=== PATIENT | female | born 1985 | race Hispanic/Latino ===

== ENCOUNTER 2017-10-14 07:07 | Day surgery (SDC) | payer MEDICAID ==
[~2017-10-14] VITALS: Ht 160 cm; Wt 80.6 kg
[~2017-10-14 07:07] MED LIST: ALPR1TAB7 PO; METH54TA PO; OMEP40CA37 PO; SODIUM CHLORIDE 0.9% 1000ML 1,000 ML IV ONE
[2017-10-14 07:37] VITALS: BP 118/70
[2017-10-14] MEDS ORDERED: PROPOFOL 10 MG/ML 20ML VIAL IV ONE ×2 (08:53→09:17)
[2017-10-14] MEDS ORDERED: LIDOCAINE HCL 2% 20ML ONE (08:53)
[2017-10-14 09:30] VITALS: BP 79/35
== END 2017-10-14 10:15 | disposition home or self-care (01) ==
LOC: ENDO 07:07 → DAH 07:07 → ENDO 10:15
PROVIDERS: ATTEND Internal Medicine Gastroenterology
DX: K62.5 Hemorrhage of anus and rectum (principal); K29.50 Unspecified chronic gastritis without bleeding; F41.9 Anxiety disorder, unspecified; F32.9 Major depressive disorder, single episode, unspecified; D64.9 Anemia, unspecified; F90.9 Attention-deficit hyperactivity disorder, unspecified type; Z90.49 Acquired absence of other specified parts of digestive tract; Z98.890 Other specified postprocedural states; Z98.51 Tubal ligation status; Z68.33 Body mass index [BMI] 33.0-33.9, adult; Z79.899 Other long term (current) drug therapy; Z87.891 Personal history of nicotine dependence
CPT/HCPCS: 36415; 43239; 45380; 84703; 88305; 88312; 88313; A4606; J2704 ×2; J3490; J7030

== ENCOUNTER 2018-05-05 13:11 | Emergency (ER) | payer MEDICAID ==
[~2018-05-05 13:11] MED LIST changes: -SODIUM CHLORIDE 0.9% 1000ML 1,000 ML IV ONE
[2018-05-05 13:38] LABS: APPEARANCE,URINE Clear (CLEAR); BILIRUBIN,URINE Negative (NEGATIVE); COLOR,URINE Yellow (YELLOW); GLUCOSE, URINE (UA) Negative (NEGATIVE); KETONES,URINE Negative (NEGATIVE); LEUKOCYTE ESTERASE ,URINE Small (NEGATIVE); NITRATE,URINE Negative (NEGATIVE); OCCULT BLOOD,URINE Negative (NEGATIVE); PH,URINE 6.5 (5.0-8.0); PROTEIN,URINE Negative (NEGATIVE)
[2018-05-05 13:43] LABS: HCG,QUAL RESULT NEGATIVE (NEGATIVE)
[2018-05-05 13:48] LABS: BACTERIA,URINE Rare /HPF (None Seen); RBC,URINE 0-1 /HPF (0-1); SQUAMOUS EPITHELIAL CELL,UR Few /HPF (0-2); WBC,URINE 0-1 /HPF (0-1)
[2018-05-05] MEDS ORDERED: LIDOCAINE HCL 2% VISCOUS 15 ML UDCUP ONE (14:32)
[2018-05-05] MEDS ORDERED: MAG HYDROX/AL HYDROX/SIMETH ES 30 ML SUSP UDCUP ONE (14:32)
[2018-05-05] MEDS ORDERED: KETOROLAC TROMETHAMINE 30MG/ML ONE (15:42)
== END 2018-05-05 16:45 | disposition home or self-care (01) ==
LOC: EDH 13:11
DX: N30.00 Acute cystitis without hematuria (principal); F98.8 Other specified behavioral and emotional disorders with onset usually occurring in childhood and adolescence; F41.9 Anxiety disorder, unspecified
CPT/HCPCS: 74176; 76856; 81001; 81025; 96372; 99284; J1885

== ENCOUNTER 2018-05-11 21:20 | Observation (INO) | payer MEDICAID ==
[~2018-05-11] VITALS: Ht 157.5 cm; Wt 84.8 kg
[2018-05-11 21:57] LABS: APPEARANCE,URINE Clear (CLEAR); BILIRUBIN,URINE Negative (NEGATIVE); COLOR,URINE Dark Yellow (YELLOW); GLUCOSE, URINE (UA) Negative (NEGATIVE); KETONES,URINE 15 mg/dL (NEGATIVE); LEUKOCYTE ESTERASE ,URINE Negative (NEGATIVE); NITRATE,URINE Negative (NEGATIVE); OCCULT BLOOD,URINE Nonhemolyzed Trace (NEGATIVE); PROTEIN,URINE Negative (NEGATIVE)
[2018-05-11 22:00] LABS: HCG,QUAL RESULT NEGATIVE (NEGATIVE)
[2018-05-11 22:04] LABS: BASOPHILS % (AUTO) 0.2 % (0.0-5.0); EOSINOPHILS % (AUTO) 1.1 % (0.0-8.0); HEMATOCRIT 39.4 % (36-48); LYMPHOCYTES % (AUTO) 12.3 % (21.0-51.0); MEAN CORPUSCULAR HGB CONC 31.7 g/dL (32.0-36.0); MEAN CORPUSCULAR VOLUME 75.7 fL (79-99); MONOCYTES % (AUTO) 4.2 % (3.0-13.0); NEUTROPHILS % (AUTO) 82.2 % (40.0-77.0); NUCLEATED RED BLOOD CELLS 0.1 % (0.0-0.19); PLATELET COUNT (AUTO) 204 K/uL (130-400); RED CELL DISTRIBUTION WIDTH 16.6 % (11.0-15.5)
[2018-05-11 22:07] LABS: BACTERIA,URINE Rare /HPF (None Seen); MUCUS,URINE Rare LPF (None Seen); SQUAMOUS EPITHELIAL CELL,UR Few /HPF (0-2); WBC,URINE 0-1 /HPF (0-1)
[2018-05-11 22:16] LABS: CREATININE 0.7 mg/dL (0.5-1.5); POTASSIUM 3.6 mmol/L (3.5-5.1)
[2018-05-11 22:20] LABS: BILIRUBIN,TOTAL 0.7 mg/dL (0.2-1.0); TOTAL PROTEIN, SERUM 7.8 g/dL (6.0-8.3)
[2018-05-11] MEDS ORDERED: PROMETHAZINE HCL 25 MG/ML 1ML AMPULE IM ONE (22:23)
[2018-05-11] MEDS ORDERED: MORPHINE SULFATE 2 MG/ML 1ML SYG ONE (22:24)
[2018-05-11] MEDS ORDERED: FAMOTIDINE/PF 20 MG/2 ML VIAL IV ONE (22:24)
[2018-05-11] MEDS ORDERED: SODIUM CHLORIDE 0.9% 50 ML IV ONE (22:25)
[2018-05-11] MEDS ORDERED: SODIUM CHLORIDE 0.9% 1000ML 1,000 ML IV ONE (22:29)
[2018-05-11] MEDS ORDERED: LIDOCAINE HCL 2% VISCOUS 15 ML UDCUP ONE ×2 (23:34→23:41)
[2018-05-11] MEDS ORDERED: MAGNESIUM HYDROXIDE 30 ML/UDCUP ONE ×2 (23:34→23:42)
[2018-05-12] MEDS ORDERED: MORPHINE SULFATE 2 MG/ML 1ML SYG ONE (00:32)
[2018-05-12 02:49] VITALS: BP 118/61
[2018-05-12] MEDS ORDERED: ONDANSETRON HCL 4 MG/2 ML VIAL IVP PRN (03:00)
[2018-05-12] MEDS ORDERED: MORPHINE SULFATE 5 MG/ML VIAL IVP PRN (03:00)
[2018-05-12] MEDS: SODIUM CHLORIDE 0.9% 1000ML 1,000 ML IV SCH ×2 (03:03→16:32)
[2018-05-12 04:27] LABS: MEAN CORPUSCULAR HEMOGLOBIN 24.9 pg (27.0-33.0); MEAN CORPUSCULAR HGB CONC 32.6 g/dL (32.0-36.0); MEAN CORPUSCULAR VOLUME 76.1 fL (79-99); PLATELET COUNT (AUTO) 206 K/uL (130-400); RED BLOOD CELL COUNT(AUTO) 4.59 MIL/uL (4.00-5.50); RED CELL DISTRIBUTION WIDTH 16.8 % (11.0-15.5); WHITE BLOOD COUNT (AUTO) 6.7 K/uL (4.8-10.8)
[2018-05-12 04:40] LABS: CREATININE 0.7 mg/dL (0.5-1.5); POTASSIUM 3.6 mmol/L (3.5-5.1)
[2018-05-12 05:07] LABS: BAND NEUTROPHILS % (MANUAL) 3 % (0-2); BASOPHILS % (MANUAL) 1 % (0-2); EOSINOPHILS % (MANUAL) 2 % (1-6); LYMPHOCYTES % (MANUAL) 6 % (22-44); MONOCYTES % (MANUAL) 4 % (2-9); SEGMENTED NEUTROPHILS % 84 % (40-70)
[2018-05-12 05:08] LABS: MAN.DIFF COMMENT-IMPRESSION MANUAL DIFFERENTIAL; PLATELET MORPHOLOGY COMMENT ADEQUATE
[2018-05-12 08:00] VITALS: BP 113/59
[2018-05-12] MEDS ORDERED: PANTOPRAZOLE 40 MG/VIAL IVP SCH (09:00)
[2018-05-12] MEDS: CEFTRIAXONE SODIUM 1 GM IVP SCH (10:21)
[2018-05-12 11:00] VITALS: BP 108/56
[2018-05-12 16:00] VITALS: BP 113/63
[2018-05-12 20:02] VITALS: BP 109/58
[2018-05-12 23:47] VITALS: BP 101/55
[2018-05-13] MEDS: SODIUM CHLORIDE 0.9% 1000ML 1,000 ML IV SCH (04:41)
[2018-05-13 04:54] VITALS: BP 106/67
[2018-05-13 08:00] VITALS: BP 123/83
[2018-05-13] MEDS ORDERED: PANTOPRAZOLE SODIUM 40 MG TABLET.DR PO SCH (08:37)
[2018-05-13] MEDS: CEFTRIAXONE SODIUM 1 GM IVP SCH (08:55)
== END 2018-05-13 11:51 | disposition home or self-care (01) ==
LOC: EDH 21:20 → EDHIP 21:21 → 4BH 05-12 02:18
PROVIDERS: ADMIT Internal Medicine; ATTEND Internal Medicine
DX: K52.9 Noninfective gastroenteritis and colitis, unspecified (principal); E86.0 Dehydration; F41.9 Anxiety disorder, unspecified; Z98.51 Tubal ligation status; Z90.49 Acquired absence of other specified parts of digestive tract
CPT/HCPCS: 36415 ×2; 80048; 80053; 81001; 81025; 82150 ×2; 82270; 83630; 83690 ×2; 85025 ×2; 87046; 87324; 87804 ×2; 96361 ×2; 96374; 96376; 99284; A4218 ×2; C9113; G0378 ×38; J0696 ×2; J2550; J3490; J7030 ×2

== ENCOUNTER → 2018-06-09 | Outpatient (CLI) | payer MEDICAID | END | disposition home or self-care (01) | LOC: RAH 10:22 | PROVIDERS: ATTEND Internal Medicine Gastroenterology | DX: R10.13 Epigastric pain (principal); R11.2 Nausea with vomiting, unspecified | CPT/HCPCS: 78264; A9541 ==

== ENCOUNTER 2019-06-01 06:17 | Day surgery (SDC) | payer MEDICAID ==
[2019-05-28 16:05] LABS: BASOPHILS % (AUTO) 0.5 % (0.0-5.0); MEAN CORPUSCULAR HEMOGLOBIN 24.2 pg (27.0-33.0); MEAN CORPUSCULAR HGB CONC 30.6 g/dL (32.0-36.0); MEAN CORPUSCULAR VOLUME 79.3 fL (79-99); MONOCYTES % (AUTO) 5.9 % (3.0-13.0); NEUTROPHILS % (AUTO) 64.5 % (40.0-77.0); PLATELET COUNT (AUTO) 268 K/uL (130-400); RED BLOOD CELL COUNT(AUTO) 4.54 MIL/uL (4.00-5.50); RED CELL DISTRIBUTION WIDTH 15.4 % (11.0-15.5); WHITE BLOOD COUNT (AUTO) 7.6 K/uL (4.8-10.8)
[2019-05-28 16:11] VITALS: BP 112/65
[2019-05-31] MEDS: CALDOLOR 800MG+NS 250ML 250 ML IV SCH (09:30)
[2019-05-31] MEDS: CEFAZOLIN SODIUM 1 GM VIAL IVP SCH (09:30)
[2019-06-01] VITALS (17 sets, daily range): BP systolic 104–137; BP diastolic 49–81
[~2019-06-01] VITALS: Ht 158.8 cm; Wt 80.8 kg
[2019-06-01] MEDS ORDERED: LACTATED RINGERS 1000ML 1,000 ML IV ONE (06:26)
[2019-06-01] MEDS ORDERED: LIDOCAINE PF 2% 5ML ABBOJECT ONE (07:42)
[2019-06-01] MEDS ORDERED: MIDAZOLAM HCL 1 MG/ML 2ML VIAL ONE (07:43)
[2019-06-01] MEDS ORDERED: PROPOFOL 10 MG/ML 20ML VIAL IV ONE (07:43)
[2019-06-01] MEDS ORDERED: FENTANYL CITRATE PF 50 MCG/1 ML 2ML VIAL ONE ×2 (07:43→08:52)
[2019-06-01] MEDS: CEFAZOLIN SODIUM 1 GM VIAL IVP SCH (08:45)
[2019-06-01] MEDS: CALDOLOR 800MG+NS 250ML 250 ML IV SCH (08:48)
[2019-06-01] MEDS ORDERED: DEXAMETHASONE SOD PHOSPHATE 10MG/ML 1ML VIAL ONE (08:50)
[2019-06-01] MEDS ORDERED: ONDANSETRON HCL 4 MG/2 ML VIAL ONE (08:51)
== END 2019-06-01 11:12 | disposition home or self-care (01) ==
LOC: DAH 06:17
PROVIDERS: ATTEND Obstetrics & Gynecology
DX: N92.0 Excessive and frequent menstruation with regular cycle (principal); Z98.890 Other specified postprocedural states; Z90.49 Acquired absence of other specified parts of digestive tract
CPT/HCPCS: 36415 ×2; 58563; 85025; 86850 ×2; 86900 ×2; 86901 ×2; A4215; A4221; A4222; A4223; A4351; A4355; A4510; A4600; A4663; A6260; J0690; J1100; J2001; J2250; J2405; J2704; J3010 ×2; J7030; J7120

== ENCOUNTER 2020-04-15 14:04 | Emergency (ER) | payer MEDICAID ==
[2020-04-15] MEDS ORDERED: DEXAMETHASONE SOD PHOSPHATE 10MG/ML 1ML VIAL ONE (15:05)
[2020-04-15] MEDS ORDERED: FAMOTIDINE 20MG TAB 20 MG TAB ONE (15:06)
[2020-04-15] MEDS ORDERED: DiphenhydrAMINE HCL 50 MG/ML VIAL ONE (15:06)
== END 2020-04-15 15:17 | disposition home or self-care (01) ==
LOC: EDH 14:04
DX: L50.0 Allergic urticaria (principal); F41.9 Anxiety disorder, unspecified; Z88.6 Allergy status to analgesic agent; Z98.51 Tubal ligation status; Z90.49 Acquired absence of other specified parts of digestive tract; Z98.890 Other specified postprocedural states
CPT/HCPCS: 96372 ×2; 99284; J1100; J1200

== ENCOUNTER 2020-04-16 06:25 | Emergency (ER) | payer MEDICAID ==
[2020-04-16] MEDS ORDERED: FAMOTIDINE 20MG TAB 20 MG TAB ONE (06:44)
[2020-04-16] MEDS ORDERED: DiphenhydrAMINE HCL 50 MG/ML VIAL ONE (06:45)
[2020-04-16] MEDS ORDERED: PREDNISONE 20 MG TABLET ONE (06:45)
[2020-04-16] MEDS ORDERED: ALBUTEROL SULFATE 0.083% 2.5 MG/3 ML INH IH ONE (06:59)
== END 2020-04-16 07:56 | disposition home or self-care (01) ==
LOC: EDH 06:25
DX: L50.0 Allergic urticaria (principal); F41.9 Anxiety disorder, unspecified; Z88.6 Allergy status to analgesic agent; Z98.51 Tubal ligation status; Z98.890 Other specified postprocedural states
CPT/HCPCS: 94640; 96372; 99283; J1200

== ENCOUNTER → 2020-06-26 | Emergency (ER) | payer MEDICAID ==
[~2020-06-26] MED LIST changes: +ACETAMINOPHEN-CODEINE 300/30MG TAB ONE; -ALPR1TAB7 PO; +CLINDAMYCIN HCL 150 MG CAP ONE; -METH54TA PO; -OMEP40CA37 PO; +SULFAMETHOX-TMP DS 800/160 TAB ONE
== END ==
LOC: EDH 19:19
DX: L03.317 Cellulitis of buttock (principal); F41.9 Anxiety disorder, unspecified; Z90.49 Acquired absence of other specified parts of digestive tract; Z88.5 Allergy status to narcotic agent

== ENCOUNTER 2021-04-24 00:03 | Emergency (ER) | payer MEDICAID ==
[~2021-04-24] VITALS: Ht 157.5 cm; Wt 86.2 kg
[2021-04-24 00:07] VITALS: BP 129/83
[2021-04-24 00:24] LABS: APPEARANCE,URINE Clear (CLEAR); BILIRUBIN,URINE Small (NEGATIVE); COLOR,URINE Dark Yellow (YELLOW); GLUCOSE, URINE (UA) Negative (NEGATIVE); KETONES,URINE Negative (NEGATIVE); LEUKOCYTE ESTERASE ,URINE Moderate (NEGATIVE); NITRATE,URINE Positive (NEGATIVE); OCCULT BLOOD,URINE Negative (NEGATIVE); PH,URINE 6.5 (5.0-8.0); PROTEIN,URINE Trace mg/dL (NEGATIVE)
[2021-04-24 00:27] LABS: HCG,QUAL RESULT NEGATIVE (NEGATIVE)
[2021-04-24 00:38] LABS: BACTERIA,URINE Rare /HPF (None Seen); RBC,URINE 0-1 /HPF (0-1)
[2021-04-24] MEDS ORDERED: MACR100 PO (00:46)
[2021-04-24] MEDS ORDERED: PHEN-847 PO (00:46)
[2021-04-24] MEDS ORDERED: PHENAZOPYRIDINE HCL 200 MG TABLET ONE (01:15)
[2021-04-24] MEDS ORDERED: NITROFURANTOIN MONOHYD/M-CRYST 100 MG CAPSULE PO ONE (01:15)
[2021-04-25] MEDS ORDERED: PHEN-846 PO (19:16)
[2021-04-25] MEDS ORDERED: CEPH500B PO (19:16)
== END 2021-04-24 01:20 | disposition home or self-care (01) ==
LOC: EDH 00:03
DX: N39.0 Urinary tract infection, site not specified (principal); Z88.5 Allergy status to narcotic agent
CPT/HCPCS: 81001; 81025; 87088

== ENCOUNTER 2021-04-25 17:31 | Emergency (ER) | payer OTHER, MEDICAID ==
[~2021-04-25] VITALS: Ht 157.5 cm; Wt 84.8 kg
[~2021-04-25 17:31] MED LIST changes: -ACETAMINOPHEN-CODEINE 300/30MG TAB ONE; -CLINDAMYCIN HCL 150 MG CAP ONE; +MACR100 PO; +PHEN-847 PO; -SULFAMETHOX-TMP DS 800/160 TAB ONE
[2021-04-25 17:59] LABS: APPEARANCE,URINE Clear (CLEAR); BILIRUBIN,URINE Negative (NEGATIVE); COLOR,URINE Dark Yellow (YELLOW); GLUCOSE, URINE (UA) Negative (NEGATIVE); KETONES,URINE Negative (NEGATIVE); LEUKOCYTE ESTERASE ,URINE Trace (NEGATIVE); NITRATE,URINE Positive (NEGATIVE); OCCULT BLOOD,URINE Negative (NEGATIVE); PH,URINE 7.5 (5.0-8.0); PROTEIN,URINE Negative (NEGATIVE)
[2021-04-25 18:16] LABS: HCG,QUAL RESULT NEGATIVE (NEGATIVE)
[2021-04-25 18:20] LABS: BACTERIA,URINE Rare /HPF (None Seen); RBC,URINE 0-1 /HPF (0-1); SQUAMOUS EPITHELIAL CELL,UR Few /HPF (0-2)
[2021-04-25] MEDS ORDERED: CEFTRIAXONE 1G VIAL IM ONE (18:30)
[2021-04-25] MEDS ORDERED: PHENAZOPYRIDINE HCL 200 MG TABLET PO ONE (18:30)
[2021-04-25 18:51] LABS: BASOPHILS % (AUTO) 0.5 % (0.0-5.0); EOSINOPHILS % (AUTO) 1.7 % (0.0-8.0); HEMATOCRIT 39.2 % (36-48); LYMPHOCYTES % (AUTO) 14.1 % (21.0-51.0); MEAN CORPUSCULAR HEMOGLOBIN 28.4 pg (27.0-33.0); MEAN CORPUSCULAR HGB CONC 32.1 g/dL (32.0-36.0); MEAN CORPUSCULAR VOLUME 88.5 fL (79-99); MONOCYTES % (AUTO) 6.2 % (3.0-13.0); PLATELET COUNT (AUTO) 271 K/uL (130-400); RED BLOOD CELL COUNT(AUTO) 4.43 MIL/uL (4.00-5.50); RED CELL DISTRIBUTION WIDTH 13.5 % (11.0-15.5); WHITE BLOOD COUNT (AUTO) 10.6 K/uL (4.8-10.8)
[2021-04-25 19:01] LABS: CREATININE 0.7 mg/dL (0.5-1.5); POTASSIUM 4.2 mmol/L (3.5-5.1)
[2021-04-25 19:08] LABS: ALBUMIN 3.6 g/dL (3.5-5.0); BILIRUBIN,TOTAL 0.3 mg/dL (0.2-1.0); CRP QUANTITATIVE 26.6 mg/L (0.00-9.0); TOTAL PROTEIN, SERUM 7.2 g/dL (6.0-8.3)
[2021-04-25] MEDS ORDERED: PHEN-846 PO (19:16)
[2021-04-25] MEDS ORDERED: CEPH500B PO (19:16)
[2021-04-25 19:21] VITALS: BP 126/42
== END 2021-04-25 19:45 | disposition home or self-care (01) ==
LOC: EDH 17:31
DX: N39.0 Urinary tract infection, site not specified (principal); F41.9 Anxiety disorder, unspecified; F90.9 Attention-deficit hyperactivity disorder, unspecified type; Z88.5 Allergy status to narcotic agent
CPT/HCPCS: 36415; 80053; 81001; 81025; 85025; 86140; 87088; 87804 ×2; 96372; 99283; J0696

== ENCOUNTER → 2022-02-02 | Outpatient (CLI) | payer OTHER, MEDICAID ==
[~2022-02-02] MED LIST changes: +CEPH500B PO; +PHEN-846 PO
[2022-02-02 11:36] LABS: BASOPHILS % (AUTO) 0.4 % (0.0-5.0); EOSINOPHILS % (AUTO) 1.3 % (0.0-8.0); HEMATOCRIT 43.5 % (36-48); LYMPHOCYTES % (AUTO) 26.2 % (21.0-51.0); MEAN CORPUSCULAR HEMOGLOBIN 29.3 pg (27.0-33.0); MEAN CORPUSCULAR HGB CONC 33.1 g/dL (32.0-36.0); MEAN CORPUSCULAR VOLUME 88.4 fL (79-99); MONOCYTES % (AUTO) 5.2 % (3.0-13.0); NEUTROPHILS % (AUTO) 66.8 % (40.0-77.0); PLATELET COUNT (AUTO) 256 K/uL (130-400); RED BLOOD CELL COUNT(AUTO) 4.92 MIL/uL (4.00-5.50); RED CELL DISTRIBUTION WIDTH 13.2 % (11.0-15.5); WHITE BLOOD COUNT (AUTO) 7.5 K/uL (4.8-10.8)
[2022-02-02 12:03] LABS: CREATININE 0.8 mg/dL (0.5-1.5); POTASSIUM 4.3 mmol/L (3.5-5.1); THYROID STIMULATING HORMONE 1.09 uIU/mL (0.36-3.74); TOTAL PROTEIN, SERUM 7.7 g/dL (6.0-8.3)
== END | disposition home or self-care (01) ==
LOC: LAB 11:04
PROVIDERS: ATTEND Internal Medicine
DX: Z00.00 Encounter for general adult medical examination without abnormal findings (principal); Z13.220 Encounter for screening for lipoid disorders; Z13.29 Encounter for screening for other suspected endocrine disorder; G47.00 Insomnia, unspecified; F41.1 Generalized anxiety disorder; F90.9 Attention-deficit hyperactivity disorder, unspecified type; H90.41 Sensorineural hearing loss, unilateral, right ear, with unrestricted hearing on the contralateral side; E66.8 Other obesity; Z68.34 Body mass index [BMI] 34.0-34.9, adult
CPT/HCPCS: 36415; 80053; 80061; 84443; 85025

== ENCOUNTER 2023-01-23 15:34 | Emergency (ER) | payer MEDICAID, OTHER ==
[~2023-01-23] VITALS: Ht 157.5 cm; Wt 73.9 kg
[2023-01-23] MEDS ORDERED: 0.9%NACL 1000ML 1,000 ML IV ONE (18:00)
[2023-01-23] MEDS ORDERED: LIDOCAINE HCL 2% VISCOUS 15 ML UDCUP PO ONE (18:00)
[2023-01-23] MEDS ORDERED: ONDANSETRON 4MG INJ IVP ONE (18:00)
[2023-01-23] MEDS ORDERED: MAG/ALUM/SIMETH 30 ML UDCUP PO ONE (18:00)
[2023-01-23 18:15] LABS: BASOPHILS # (AUTO) 0.05 K/uL (0.00-0.20); BASOPHILS % (AUTO) 0.4 % (0.0-5.0); EOSINOPHILS # (AUTO) 0.04 K/uL (0.00-0.70); EOSINOPHILS % (AUTO) 0.3 % (0.0-8.0); HEMATOCRIT 43.4 % (36-48); IMMATURE GRANULOCYTE ABSOLUTE 0.04 K/uL (0-1); LYMPHOCYTES # (AUTO) 2.3 K/uL (1.0-4.8); LYMPHOCYTES % (AUTO) 18.7 % (21.0-51.0); MEAN CORPUSCULAR HGB CONC 34.1 g/dL (32.0-36.0); MONOCYTES # (AUTO) 0.7 K/uL (0.1-1.0); MONOCYTES % (AUTO) 5.8 % (3.0-13.0); NEUTROPHILS # (AUTO) 9.2 K/uL (1.8-7.7); NEUTROPHILS % (AUTO) 74.5 % (40.0-77.0); PLATELET COUNT (AUTO) 253 K/uL (130-400); RED BLOOD CELL COUNT(AUTO) 4.77 MIL/uL (4.00-5.50); RED CELL DISTRIBUTION WIDTH 12.7 % (11.0-15.5); WHITE BLOOD COUNT (AUTO) 12.3 K/uL (4.8-10.8)
[2023-01-23 18:18] LABS: ADD UA MICROSCOPIC YES; APPEARANCE,URINE HAZY (CLEAR); BILIRUBIN,URINE NEGATIVE (NEGATIVE); COLOR,URINE YELLOW (YELLOW); GLUCOSE, URINE (UA) NEGATIVE (NEGATIVE); KETONES,URINE 20 mg/dL (NEGATIVE); LEUKOCYTE ESTERASE ,URINE NEGATIVE Leu/uL (NEGATIVE); NITRATE,URINE NEGATIVE (NEGATIVE); OCCULT BLOOD,URINE NEGATIVE (NEGATIVE); PH,URINE 6.5 (5.0-8.0); PROTEIN,URINE 30 mg/dL (NEGATIVE); UROBILINOGEN,URINE >=8.0 mg/dL (0.2-1.0)
[2023-01-23 18:20] LABS: HCG,QUALITATIVE URINE NEGATIVE (NEGATIVE)
[2023-01-23 18:22] LABS: BACTERIA,URINE RARE /HPF (None Seen); MUCUS,URINE FEW LPF (None Seen); RBC,URINE 0-1 /HPF (0-1); SQUAMOUS EPITHELIAL CELL,UR MOD /HPF (0-2); WBC,URINE 0-1 /HPF (0-1)
[2023-01-23 18:38] LABS: CREATININE 0.9 mg/dL (0.5-1.5); POTASSIUM 3.1 mmol/L (3.5-5.1)
[2023-01-23 18:42] LABS: BILIRUBIN,TOTAL 0.9 mg/dL (0.2-1.0); TOTAL PROTEIN, SERUM 7.8 g/dL (6.0-8.3)
[2023-01-23] MEDS ORDERED: ONDA4TAB10 PO (18:46)
[2023-01-23] MEDS ORDERED: PANT40TA PO (18:46)
[2023-01-23] MEDS ORDERED: POTASSIUM BICARB/CIT AC 25 MEQ TABLET.EFF PO ONE (19:00)
[2023-01-23 21:17] VITALS: BP 128/76; PULSE 86; RESP 18; O2SAT 99
== END 2023-01-23 21:18 | disposition home or self-care (01) ==
LOC: EDH 15:34
DX: K52.9 Noninfective gastroenteritis and colitis, unspecified (principal); F41.9 Anxiety disorder, unspecified; Z79.899 Other long term (current) drug therapy; Z88.5 Allergy status to narcotic agent
CPT/HCPCS: 99284; 96374; 80053; 83690; 85025; 81001; 81025; 36415; 93005; J7030; J2405